=== PATIENT | female | born 1960 | race Caucasian/White ===

== ENCOUNTER → 2021-12-20 | Outpatient (CLI) | payer BC ==
[~2021-12-20] MED LIST: CVS1CAP2 PO; FAMO40TA3 PO; FLEC50HA PO; GLUC1TAB58 PO; MM S100C PO; OXYB5TAB10 PO; PANT40TA29 PO; POTA99CA2 PO; RA T500C2 PO; SUCR1TA PO; VITA-243 PO
== END ==
LOC: M LABSMTC 10:15
PROVIDERS: ATTEND Anesthesiology
DX: Z01.812 Encounter for preprocedural laboratory examination (principal); Z20.822 Contact with and (suspected) exposure to COVID-19

== ENCOUNTER 2021-12-24 07:28 | Day surgery (SDC) | payer BC ==
[~2021-12-24] VITALS: Ht 170.2 cm; Wt 108.5 kg
[~2021-12-24 07:28] MED LIST changes: +LIDOCAINE 1% SDV 5ML VIAL As Ordered ONE; +LR 1,000 ML IV SCH; +MAXITROL OPHTH SUSP 5 ML As Ordered ONE; +MIDAZOLAM INJ 2MG/2ML VIAL (J2250 PER 1MG) As Ordered ONE
[2021-12-24] MEDS: TETRACAINE 0.5% OPHTH SOLN 4ML OS SCH ×2 (07:50→07:56)
[2021-12-24] MEDS: FLURBIPROFEN 0.03% OPHTH SOLN 2.5 ML OS SCH ×2 (07:56→08:02)
[2021-12-24] MEDS: CYCLOPENTOLATE 1% OPHTH SOLN 2 ML BTL OS SCH ×2 (07:57→08:02)
[2021-12-24] MEDS: PHENYLEPHRINE 2.5% OPHTH SOL 2ML OS SCH ×2 (07:57→08:02)
[2021-12-24 10:04] VITALS: BP 149/74
== END 2021-12-24 10:40 | disposition home or self-care (01) ==
LOC: M SDC 07:28
PROVIDERS: ATTEND Ophthalmology
DX: H25.12 Age-related nuclear cataract, left eye (principal); K21.9 Gastro-esophageal reflux disease without esophagitis; K44.9 Diaphragmatic hernia without obstruction or gangrene; Z88.5 Allergy status to narcotic agent; Z95.810 Presence of automatic (implantable) cardiac defibrillator; Z95.0 Presence of cardiac pacemaker; Z88.2 Allergy status to sulfonamides; Z79.899 Other long term (current) drug therapy; Z91.041 Radiographic dye allergy status
CPT/HCPCS: 66984; J2250

== ENCOUNTER → 2024-06-06 | Outpatient (CLI) | payer MEDICARE ==
[~2024-06-06] MED LIST changes: -LIDOCAINE 1% SDV 5ML VIAL As Ordered ONE; -LR 1,000 ML IV SCH; -MAXITROL OPHTH SUSP 5 ML As Ordered ONE; -MIDAZOLAM INJ 2MG/2ML VIAL (J2250 PER 1MG) As Ordered ONE; -OXYB5TAB10 PO; +OXYB5TAB14 PO
== END ==
LOC: M PLAIMG 14:51
PROVIDERS: ATTEND Internal Medicine Cardiovascular Disease
DX: R05.3 Chronic cough (principal)

== ENCOUNTER → 2025-05-20 | Outpatient (CLI) | payer MEDICARE ==
[~2025-05-20] MED LIST changes: -RA T500C2 PO; +TURM500C10 PO
== END ==
LOC: M CARPUL 09:56
PROVIDERS: ATTEND Physician Assistant
DX: I42.9 Cardiomyopathy, unspecified (principal); Z53.9 Procedure and treatment not carried out, unspecified reason